=== PATIENT | male | born 1945 | race Two or more races ===

== ENCOUNTER 2017-05-31 14:44 | Emergency (ER) | payer OTHER, MEDICAID ==
--- NOTE | 2017-05-31 14:49 | EDPHY ---
H & P HPI/ROS: HPI CHIEF COMPLAINT: Right Shoulder Pain x 2 weeks, worse with movement. HISTORY OF PRESENT ILLNESS: This patient very pleasant 71-year-old male significant past medical history for insulin-dependent diabetes, hypertension, open heart surgery, dialysis, oxygen dependent but often does not wear his oxygen, he presents to the emergency room with right shoulder pain. Patient tells me it is worse with movement especially when he goes to lift shoulder up and arm over his head. He describes a sharp stabbing pain radiates from his posterior right shoulder down into his arm. He denies arm weakness. Denies trauma. He states been present on and off for 2 weeks. It is worse when he moves his arm and shoulder. He denies chest pain, pleuritic pain, hemoptysis, denies shortness of breath. Denies fever. Denies pain radiating anywhere else except right shoulder to right arm. He denies neck pain. He states he has had this often this been present before however worse over the past 2 weeks. Here in the emergency room history review of systems somewhat limited due to language barrier. He did not tolerate the phone alligator shear operator as he has hard of hearing and could not communicate well with the alligator shear operator used Tequila ROQUE to best communicate with him. This is the only alternative. Did not tolerate the phone alligator shear operator. Will get a significant history review of systems from him using Tequila ROQUE as alligator shear operator. Patient is requesting pain medicine to help him with his pain in his shoulder. Of note on exam here with elevation of his arm over his head it causes right shoulder pain. It is reproducible on exam. He has an AV fistula in his left arm not his right arm. His right arm is neurovascular intact with good pulse. Denies chest pain. He also has tender palpation over the right scapula posteriorly. He denies trauma. Past Medical History: Hypertension, diabetes, dialysis, cardiac surgery which he thinks is bypass Past Surgical History: Cardiac surgery, left AV fistula Social History: Denies daily use of drugs alcohol tobacco products Family History: Noncontributory ROS REVIEW OF SYSTEMS: A comprehensive 10 point review of systems is otherwise negative aside from elements mentioned in the history of present illness. Exam Constitutional appears well nontoxic triage nursing summary reviewed, vital signs reviewed, awake/alert. Vital signs have been reviewed. Initial oxygen saturation 66%. This was a room air saturation. He required 4 L nasal cannula at baseline. Once placed on 4 L nasal cannula his sat is 92%. Eyes normal conjunctivae and sclera, EOMI, PERRLA. HENT normal inspection, atraumatic, moist mucus membranes, no epistaxis, neck supple/ no meningismus, no raccoon eyes. Respiratory clear to auscultation bilaterally, normal breath sounds, no respiratory distress, no wheezing. Cardiovascular rate normal, regular rhythm, no murmur, no edema, distal pulses normal. Gastrointestinal soft, non-tender, no rebound, no guarding, normal bowel sounds, no distension, no pulsatile mass. Genitourinary no CVA tenderness. Musculoskeletal Left Arm: AV fistula/good thrill. no midline vertebral tenderness, full range of motion, no calf swelling, no tenderness of extremities , no meningismus, good pulses, neurovascularly intact. RIGHT ARM/RIGHT SHOULDER : Neurovascular intact good green feed attendant strength, good cap refill, warm extremity good pulse. When lifting his arm above his head he has right shoulder pain that radiates into his right arm. This is reproducible. No midline cervical spine pain, he also has some mild tenderness palpation of the posterior right scapula. No obvious sign of trauma. No rash. No shingles. No chest wall pain. Skin pink, warm, & dry, no rash, skin atraumatic. Neurologic awake, alert and oriented x 3, AAOx3, moves all 4 extremities equally, motor intact, sensory intact, CN II-XII intact, normal cerebellar, normal vision, normal speech. Psychiatric normal mood/affect. Heme/Lymph/Immune no lymphadenopathy. Differential Diagnosis: Includes but is not limited to in a particular order, musculoskeletal pain, tendinitis, rotator cuff injury, nerve root compression, neuropathy, annular tear, disc herniation, doubt ACS given reproducibility on exam. Medical Decision Making: Plan for this patient x-ray right shoulder. If x-ray is unremarkable allowed to go home with a limited supply of pain medicine as I do feel this is musculoskeletal nature. I do not feeling needs any cardiac evaluation. This is highly unlikely to be cardiac given it is reproducible on exam. He has no chest pain or shortness of breath. I also recommend that he follows up with his primary care doctor if he continues to have pain. Re-evaluation: 1540: ED x-ray right shoulder: Shows arthritic process. No fracture. No significant malalignment. This arthritic process seen in the shoulder may be the cause of his pain. Recommend orthopedic follow-up. Will refer him also primary care follow-up. Return emergency room if there is any worsening symptoms includes severe pain Of note additionally the patient was initially hypoxic on room air however requires 4 L 24 hours day. He did not bring oxygen here with his family assures me as well as the patient that he immediately will go home and get on his oxygen. Source: Patient, Family Exam Limitations: Language barrier - Medical/Surgical History Hx Asthma: No Hx Chronic Respiratory Disease: No Hx Diabetes: Yes Hx Cardiac Disease: Yes Hx Renal Disease: Yes Hx Cirrhosis: No Hx Alcoholism: No Hx HIV/AIDS: No Hx Splenectomy or Spleen Trauma: No Other PMH: RENAL FAILURE, DIALYSIS 3X/WK. HTN. OPEN HEART SURGERY. NEUROSURGERY POST CVA - Social History Smoking Status: Former smoker Constitutional: Initial Vital Signs Temperature (C) 36.5 C 05/31/17 14:50 Heart Rate 86 05/31/17 14:50 Respiratory Rate 20 05/31/17 14:50 Blood Pressure 167/79 H 05/31/17 14:50 O2 Sat (%) 66 L 05/31/17 14:50 O2 Delivery Mode Room Air O2 (L/minute) 4 Allergies/Adverse Reactions: No Known Allergies Allergy (Verified 05/31/17 15:10) Home Medications: Medication Instructions Recorded Lantus 01/29/11 Lipitor 80 mg 01/29/11 Lisinopril/Hydrochlorithiazide 01/29/11 Lodipine 01/29/11 METOPROLOL TARTRATE 01/29/11 Kidney Dialysis 06/04/14 Hydrocodone/APAP 5/325 [[place] 1 - 2 tab PO Q6H PRN #20 tab 05/02/16 5/325 (*)] Hydrocodone/APAP 5/325 [[place] 1 - 2 tab PO Q4H PRN #10 tab 05/31/17 5/325] Medical Decision Making - Diagnostics Imaging Results: Imaging Impressions Shoulder X-Ray 05/31/17 14:57 Impression: Minimal increase in moderate acromioclavicular arthrosis Departure - Departure Disposition: Home, Routine, Self-Care Clinical Impression: Shoulder arthritis Condition: Good Instructions: Osteoarthritis (ED) Referrals: JANELLE MENA [Primary Care Provider] - As per Instructions Jesus Galdamez MD [Medical Doctor] - As per Instructions Prescriptions: Hydrocodone/APAP 5/325 [[place] 5/325] 1 - 2 tab PO Q4H PRN #10 tab PRN Reason: Pain, Moderate
[2017-05-31 15:14] VITALS: RESP 20
[2017-05-31 16:17] VITALS: BP 158/74; PULSE 77; TEMP 98.1; O2SAT 4
== END 2017-05-31 16:16 | disposition home or self-care (01) ==
LOC: CED 14:44
DX: M19.011 Primary osteoarthritis, right shoulder (principal); I10 Essential (primary) hypertension; E11.9 Type 2 diabetes mellitus without complications; Z79.4 Long term (current) use of insulin; Z87.891 Personal history of nicotine dependence
CPT/HCPCS: 73030-PO